=== PATIENT | female | born 1975 | race Caucasian/White ===

== ENCOUNTER 2018-10-17 12:23 | Inpatient (IN) ==
[2018-10-17] MEDS ORDERED: LORazepam 1 MG TAB PO STA (13:13)
[2018-10-17] MEDS ORDERED: SODIUM CHLORIDE 0.9% 1000ML 1,000 ML IV SCH (13:15)
[2018-10-17 13:30] LABS: Appearance Urine Cloudy (Clear); Bilirubin Urine Negative (Negative); Blood Urine 3+ (Negative); Color Urine Red; Glucose Urine UA Negative (Negative); Ketones Urine 2+ (Negative); Leukocyte Esterase Urine Negative (Negative); Nitrite Urine Negative (Negative); Protein Urine 2+ (Negative); Specific Gravity Urine 1.025 (1.000-1.030); Urobilinogen Urine Negative (Negative)
[2018-10-17 13:50] LABS: Bacteria Urine 1+ (Negative); RBC Urine >30 /hpf (0-4)
[2018-10-17 13:54] LABS: Amphetamines+Metham, Urine Pos (Neg); Barbiturates, Urine Neg (Neg); Benzodiazepine, Urine Neg (Neg); Cocaine, Urine Neg (Neg); MDMA (Ecstacy), Urine Pos (Neg); Methadone, Urine Neg (Neg); Opiate, Urine Neg (Neg); Phencyclidine, Urine Neg (Neg)
[2018-10-17 13:55] LABS: Basophils # (auto) 0.03 K/uL (0-0.2); Basophils % (auto) 0.3 %; Eosinophils # (auto) 0.03 K/uL (0-0.5); Eosinophils % (auto) 0.3 %; Immature Granulocytes # (auto) 0.03 K/uL (0.00-0.02); Immature Granulocytes % (auto) 0.3 %; Lymphocytes # (auto) 1.53 K/uL (1.2-3.4); Lymphocytes % (auto) 14.5 %; Mean Corpuscular Hemoglobin 26.1 pg (25-34); Mean Corpuscular Hgb Conc 34.2 g/dL (32-36); Mean Corpuscular Volume 76.2 fL (80-100); Mean Platelet Volume 8.7 fL (7.4-10.4); Monocytes # (auto) 0.78 K/uL (0.11-0.59); Monocytes % (auto) 7.4 %; Neutrophils # (auto) 8.13 K/uL (1.4-6.5); Neutrophils % (auto) 77.2 %; Platelet Count 371 K/uL (130-400); RDW Coefficient of Variation 16.3 % (11.5-14.5); RDW Standard Deviation 45.2 fL (36.4-46.3); Red Blood Count 4.99 M/uL (4.2-5.4); White Blood Count 10.53 K/uL (4.8-10.8)
[2018-10-17 14:16] LABS: Pregnancy Test, Serum Negative (Negative)
[2018-10-17 14:30] LABS: Albumin Level 3.9 gm/dl (3.4-5.0); BUN Creatinine Ratio 13.5 (10-20); Creatinine Clr Calc Pharmacy 87.9 ml/min; Est GFR (African American) 119.7; Est GFR (Non-African American) 103.3; Potassium 3.7 mmol/L (3.5-5.1)
[2018-10-17 14:35] LABS: Acetaminophen < 2 ug/ml (10-30); Salicylate 2.2 mg/dl (2.8-20)
[2018-10-17 14:41] LABS: Albumin Globulin Ratio 0.9 (0.9-2); Bilirubin,Total 0.4 mg/dl (0.2-1); Globulin 4.3 gm/dl (2.5-4.0); Thyroid Stimulating Hormone 0.865 uIu/ml (0.300-4.500); Total Protein 8.2 gm/dl (6.4-8.2)
--- NOTE | 2018-10-17 15:20 | Emergency Department Note ---
Entered by Anne Ruff acting as a scribe for History of Present Illness General Chief complaint: Overdose (Intentional) Stated complaint: TOOK METH - HEARING VOICES Time Seen by Provider: 10/17/18 12:33 Source: patient History of Present Illness Onset (ago): day(s) (last night) Location: head Pain Consistency: + other (episode) Quality: + other (mental health) Associated symptoms: + denies other symptoms (abdominal pain, congestion, diarrhea) and + other (anxious, SI, hearing voices); no cough and no fever/chills The patient is a 43 year old female who presents to the Emergency Room for a [facility] evaluation. The patient states that she has been using meth for over a year. She states that last night she did a lot of it and now is anxious. She states that it is to the point that she is having thoughts of hurting herself with a plan to overdose. She reports that she has tried hurting herself in the same manner 20 some years ago and was admitted for it. The patient states that she is now hearing voices that are telling her to hurt herself and tell her that she is dying. She notes that the voices have also told her that her kids arent safe. She notes that she has also been drinking a lot of alcohol, but is unsure when she last drank and if she withdrawals. The patient notes that she is unsure if the voices are gone when she is sober as she hasnt been sober for so long. The patient denies abdominal pain, fever, chills, cough, congestion, and diarrhea. 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 and A total of 10 systems reviewed and were otherwise negative Physical Exam Vital Signs Vital Signs - 24 hr 10/17/18 12:26 10/17/18 13:25 10/17/18 13:38 Temperature 37.4 C Temperature Source Oral Sepsis Recent Fever Within 48 Hours No Sepsis Action Taken by Nursing No Action Required Pulse Rate 114 H 93 H Pulse Rate from SpO2 Sensor 91 H Respiratory Rate 20 17 Respiratory Effort / Characteristics Non-Labored Spontaneous Respiratory Depth Normal Respiratory Pattern Regular Blood Pressure 122/77 135/87 Blood Pressure Mean 92 103 Pulse Oximetry 99 99 100 Oxygen Delivery Method Room Air Room Air 10/17/18 13:47 10/17/18 14:00 10/17/18 14:30 Temperature Temperature Source Sepsis Recent Fever Within 48 Hours Sepsis Action Taken by Nursing Pulse Rate 100 H 96 H 97 H Pulse Rate from SpO2 Sensor 100 H 98 H 98 H Respiratory Rate 23 20 17 Respiratory Effort / Characteristics Respiratory Depth Respiratory Pattern Blood Pressure 139/87 134/86 Blood Pressure Mean 104 102 Pulse Oximetry 98 99 99 Oxygen Delivery Method 10/17/18 14:40 10/17/18 14:50 10/17/18 15:00 Temperature Temperature Source Sepsis Recent Fever Within 48 Hours Sepsis Action Taken by Nursing Pulse Rate 92 H 96 H 89 Pulse Rate from SpO2 Sensor 91 H 97 H 91 H Respiratory Rate 23 20 21 Respiratory Effort / Characteristics Respiratory Depth Respiratory Pattern Blood Pressure 117/82 Blood Pressure Mean 93 Pulse Oximetry 100 98 100 Oxygen Delivery Method Room Air Room Air Room Air 10/17/18 15:10 10/17/18 15:20 10/17/18 15:30 Temperature Temperature Source Sepsis Recent Fever Within 48 Hours Sepsis Action Taken by Nursing Pulse Rate 93 H 128 H 85 Pulse Rate from SpO2 Sensor 94 H 124 H 87 Respiratory Rate 23 19 20 Respiratory Effort / Characteristics Respiratory Depth Respiratory Pattern Blood Pressure 129/86 Blood Pressure Mean 100 Pulse Oximetry 98 100 99 Oxygen Delivery Method Room Air Room Air Room Air 10/17/18 15:31 10/17/18 15:40 10/17/18 15:50 Temperature Temperature Source Sepsis Recent Fever Within 48 Hours Sepsis Action Taken by Nursing Pulse Rate 91 H 101 H 101 H Pulse Rate from SpO2 Sensor 90 100 H 99 H Respiratory Rate 22 20 19 Respiratory Effort / Characteristics Respiratory Depth Respiratory Pattern Blood Pressure Blood Pressure Mean Pulse Oximetry 99 98 98 Oxygen Delivery Method Room Air Room Air Room Air 10/17/18 16:00 10/17/18 16:10 10/17/18 16:20 Temperature Temperature Source Sepsis Recent Fever Within 48 Hours Sepsis Action Taken by Nursing Pulse Rate 101 H 109 H 106 H Pulse Rate from SpO2 Sensor 99 H 107 H 108 H Respiratory Rate 22 20 20 Respiratory Effort / Characteristics Respiratory Depth Respiratory Pattern Blood Pressure 122/82 Blood Pressure Mean 95 Pulse Oximetry 99 97 99 Oxygen Delivery Method Room Air Room Air Room Air 10/17/18 16:30 10/17/18 16:31 10/17/18 16:40 Temperature Temperature Source Sepsis Recent Fever Within 48 Hours Sepsis Action Taken by Nursing Pulse Rate 104 H 103 H 102 H Pulse Rate from SpO2 Sensor 107 H 102 H 102 H Respiratory Rate 18 21 18 Respiratory Effort / Characteristics Respiratory Depth Respiratory Pattern Blood Pressure 144/111 H Blood Pressure Mean 122 Pulse Oximetry 97 97 98 Oxygen Delivery Method Room Air Room Air Room Air GENERAL: Awake, alert, anxious appearing, in no distress HENT: Normocephalic, atraumatic. Oropharynx with dry mucous membranes and otherwise unremarkable. EYES: Normal conjunctiva. Sclera non-icteric. EOMI. No nystamgus. PEARRL. NECK: Supple. No nuchal rigidity. FROM. No JVD. RESPIRATORY: Clear to auscultation bilaterally. CARDIAC: Regular rate, normal rhythm. Extremities warm and well perfused. Pulses equal. ABDOMEN: Soft, non-distended. No tenderness to palpation. No rebound or guarding. No masses. RECTAL: Deferred. MUSCULOSKELETAL: Chest examination reveals no tenderness. The back is symmetrica l on inspection without obvious abnormality. There is no CVA tenderness to palpation. No joint edema. LOWER EXTREMITIES: Calves are equal size bilaterally and non-tender. No edema. No discoloration. NEURO: Normal sensorium. No sensory or motor deficits noted. Normal reflexes. No clonus. SKIN: No rash or jaundice noted. PSYCH: Positive depression and SI with plan. Positive command hallucinations. Course 1305: Past medical records reviewed. The patient was evaluated in room A5. A complete history and physical exam was performed. 1456: The patient was medically cleared. [address] [place] [address] is coming to evaluate her. 1716: The patient was accepted to [address] [place] [address] at this time. I signed the 201 at this time. Administered Medications Discontinued Medications Sodium Chloride (Nss 1000ml) 1,000 mls @ 999 mls/hr IV .[id number] HYUN Stop: 10/17/18 14:15 Last Infusion: 10/17/18 14:59 Dose: 0 mls/hr Documented by: [id number] Admin: 10/17/18 13:49 Dose: 999 mls/hr Documented by: [id number] Lorazepam (Ativan) 1 mg PO NOW STA Stop: 10/17/18 13:14 Last Admin: 10/17/18 13:49 Dose: 1 mg Documented by: [id number] Medical Decision Making Differential Diagnosis Differential diagnoses considered include mood disorder, infection, hypoglycemia, electrolyte abnormalities, cardiac sources, intracerebral event, toxicologic, neurologic, as well as others. Medical Records Attestation: I reviewed the patient's medical records. Home Medications Current Medication List: was personally reviewed by me Laboratory Data Attestation: I reviewed the patient's lab results. Result diagrams: 10/17/18 13:37 10/17/18 13:37 Lab Results 10/17/18 10/17/18 10/17/18 Range/Units 12:45 12:45 13:37 WBC 10.53 (4.8-10.8) K/uL RBC 4.99 (4.2-5.4) M/uL Hgb 13.0 (12.0-16.0) g/dL Hct 38.0 (37-47) % MCV 76.2 L (80-100) fL MCH 26.1 (25-34) pg MCHC 34.2 (32-36) g/dL RDW Std Deviation 45.2 (36.4-46.3) fL RDW Coeff of Jennifer 16.3 H (11.5-14.5) % Plt Count 371 (130-400) K/uL MPV 8.7 (7.4-10.4) fL Immature Gran % (Auto) 0.3 % Neut % (Auto) 77.2 % Lymph % (Auto) 14.5 % [place] % (Auto) 7.4 % Eos % (Auto) 0.3 % Baso % (Auto) 0.3 % Immature Gran # (Auto) 0.03 H (0.00-0.02) K/uL Neut # (Auto) 8.13 H (1.4-6.5) K/uL Lymph # (Auto) 1.53 (1.2-3.4) K/uL [place] # (Auto) 0.78 H (0.11-0.59) K/uL Eos # (Auto) 0.03 (0-0.5) K/uL Baso # (Auto) 0.03 (0-0.2) K/uL Sodium (136-145) mmol/L Potassium (3.5-5.1) mmol/L Chloride (98-107) mmol/L Carbon Dioxide (21-32) mmol/L Anion Gap (3-11) BUN (7-18) mg/dl Creatinine (0.6-1.2) mg/dl Est Cr Clr Drug Dosing ml/min Est GFR ( Amer) Est GFR (Non-Af Amer) BUN/Creatinine Ratio (10-20) Glucose (70-99) mg/dl Calcium (8.5-10.1) mg/dl Total Bilirubin (0.2-1) mg/dl AST (15-37) U/L ALT (12-78) U/L Alkaline Phosphatase (45-117) U/L Total Protein (6.4-8.2) gm/dl Albumin (3.4-5.0) gm/dl Globulin (2.5-4.0) gm/dl Albumin/Globulin Ratio (0.9-2) TSH (0.300-4.500) uIu/ml HCG, Qual (Negative) Urine Color Red Urine Appearance Cloudy A (Clear) Urine pH 6.0 (4.5-7.5) Ur Specific [place] 1.025 (1.000-1.030) Urine Protein 2+ H (Negative) Urine Glucose (UA) Negative (Negative) Urine Ketones 2+ H (Negative) Urine Blood 3+ H (Negative) Urine Nitrite Negative (Negative) Urine Bilirubin Negative (Negative) Urine Urobilinogen Negative (Negative) Ur Leukocyte Esterase Negative (Negative) Urine RBC >30 H (0-4) /hpf Urine WBC 10-30 H (0-5) /hpf Ur Epithelial Cells 10-20 H (0-5) /lpf Urine Bacteria 1+ H (Negative) Salicylates (2.8-20) mg/dl Urine Opiates Screen Neg (Neg) Ur Methadone, Qual Neg (Neg) Acetaminophen (10-30) ug/ml Urine Barbiturates Neg (Neg) Ur Phencyclidine (PCP) Neg (Neg) U Amphetamin/Meth Scrn Pos H (Neg) MDMA (Ecstasy) Screen Pos H (Neg) U Benzodiazepines Scrn Neg (Neg) Ur Cocaine Metabolite Neg (Neg) U Marijuana (THC) Screen Neg (Neg) Ethyl Alcohol mg/dL (0-3) mg/dl 10/17/18 10/17/18 10/17/18 Range/Units 13:37 13:37 13:37 WBC (4.8-10.8) K/uL RBC (4.2-5.4) M/uL Hgb (12.0-16.0) g/dL Hct (37-47) % MCV (80-100) fL MCH (25-34) pg MCHC (32-36) g/dL RDW Std Deviation (36.4-46.3) fL RDW Coeff of Jennifer (11.5-14.5) % Plt Count (130-400) K/uL MPV (7.4-10.4) fL Immature Gran % (Auto) % Neut % (Auto) % Lymph % (Auto) % [place] % (Auto) % Eos % (Auto) % Baso % (Auto) % Immature Gran # (Auto) (0.00-0.02) K/uL Neut # (Auto) (1.4-6.5) K/uL Lymph # (Auto) (1.2-3.4) K/uL [place] # (Auto) (0.11-0.59) K/uL Eos # (Auto) (0-0.5) K/uL Baso # (Auto) (0-0.2) K/uL Sodium 137 (136-145) mmol/L Potassium 3.7 (3.5-5.1) mmol/L Chloride 107 (98-107) mmol/L Carbon Dioxide 22 (21-32) mmol/L Anion Gap 8.0 (3-11) BUN 10 (7-18) mg/dl Creatinine 0.72 (0.6-1.2) mg/dl Est Cr Clr Drug Dosing 87.9 ml/min Est GFR ( Amer) 119.7 Est GFR (Non-Af Amer) 103.3 BUN/Creatinine Ratio 13.5 (10-20) Glucose 91 (70-99) mg/dl Calcium 9.0 (8.5-10.1) mg/dl Total Bilirubin 0.4 (0.2-1) mg/dl AST 20 (15-37) U/L ALT 44 (12-78) U/L Alkaline Phosphatase 67 (45-117) U/L Total Protein 8.2 (6.4-8.2) gm/dl Albumin 3.9 (3.4-5.0) gm/dl Globulin 4.3 H (2.5-4.0) gm/dl Albumin/Globulin Ratio 0.9 (0.9-2) TSH 0.865 (0.300-4.500) uIu/ml HCG, Qual (Negative) Urine Color Urine Appearance (Clear) Urine pH (4.5-7.5) Ur Specific [place] (1.000-1.030) Urine Protein (Negative) Urine Glucose (UA) (Negative) Urine Ketones (Negative) Urine Blood (Negative) Urine Nitrite (Negative) Urine Bilirubin (Negative) Urine Urobilinogen (Negative) Ur Leukocyte Esterase (Negative) Urine RBC (0-4) /hpf Urine WBC (0-5) /hpf Ur Epithelial Cells (0-5) /lpf Urine Bacteria (Negative) Salicylates 2.2 L (2.8-20) mg/dl Urine Opiates Screen (Neg) Ur Methadone, Qual (Neg) Acetaminophen < 2 L (10-30) ug/ml Urine Barbiturates (Neg) Ur Phencyclidine (PCP) (Neg) U Amphetamin/Meth Scrn (Neg) MDMA (Ecstasy) Screen (Neg) U Benzodiazepines Scrn (Neg) Ur Cocaine Metabolite (Neg) U Marijuana (THC) Screen (Neg) Ethyl Alcohol mg/dL < 3.0 (0-3) mg/dl 10/17/18 Range/Units 13:37 WBC (4.8-10.8) K/uL RBC (4.2-5.4) M/uL Hgb (12.0-16.0) g/dL Hct (37-47) % MCV (80-100) fL MCH (25-34) pg MCHC (32-36) g/dL RDW Std Deviation (36.4-46.3) fL RDW Coeff of Jennifer (11.5-14.5) % Plt Count (130-400) K/uL MPV (7.4-10.4) fL Immature Gran % (Auto) % Neut % (Auto) % Lymph % (Auto) % [place] % (Auto) % Eos % (Auto) % Baso % (Auto) % Immature Gran # (Auto) (0.00-0.02) K/uL Neut # (Auto) (1.4-6.5) K/uL Lymph # (Auto) (1.2-3.4) K/uL [place] # (Auto) (0.11-0.59) K/uL Eos # (Auto) (0-0.5) K/uL Baso # (Auto) (0-0.2) K/uL Sodium (136-145) mmol/L Potassium (3.5-5.1) mmol/L Chloride (98-107) mmol/L Carbon Dioxide (21-32) mmol/L Anion Gap (3-11) BUN (7-18) mg/dl Creatinine (0.6-1.2) mg/dl Est Cr Clr Drug Dosing ml/min Est GFR ( Amer) Est GFR (Non-Af Amer) BUN/Creatinine Ratio (10-20) Glucose (70-99) mg/dl Calcium (8.5-10.1) mg/dl Total Bilirubin (0.2-1) mg/dl AST (15-37) U/L ALT (12-78) U/L Alkaline Phosphatase (45-117) U/L Total Protein (6.4-8.2) gm/dl Albumin (3.4-5.0) gm/dl Globulin (2.5-4.0) gm/dl Albumin/Globulin Ratio (0.9-2) TSH (0.300-4.500) uIu/ml HCG, Qual Negative (Negative) Urine Color Urine Appearance (Clear) Urine pH (4.5-7.5) Ur Specific [place] (1.000-1.030) Urine Protein (Negative) Urine Glucose (UA) (Negative) Urine Ketones (Negative) Urine Blood (Negative) Urine Nitrite (Negative) Urine Bilirubin (Negative) Urine Urobilinogen (Negative) Ur Leukocyte Esterase (Negative) Urine RBC (0-4) /hpf Urine WBC (0-5) /hpf Ur Epithelial Cells (0-5) /lpf Urine Bacteria (Negative) Salicylates (2.8-20) mg/dl Urine Opiates Screen (Neg) Ur Methadone, Qual (Neg) Acetaminophen (10-30) ug/ml Urine Barbiturates (Neg) Ur Phencyclidine (PCP) (Neg) U Amphetamin/Meth Scrn (Neg) MDMA (Ecstasy) Screen (Neg) U Benzodiazepines Scrn (Neg) Ur Cocaine Metabolite (Neg) U Marijuana (THC) Screen (Neg) Ethyl Alcohol mg/dL (0-3) mg/dl ECG Data Attestation: I personally reviewed and interpreted this ECG as follows: Indication: toxicologic Rate (beats per minute): 94 Rhythm: normal sinus Findings: + other (normal axis, normal intervals) and + RBBB (incomplete); no ST depression, no ST elevation and no acute ischemic change Blood Pressure Blood Pressure Findings: Elevated blood pressure Blood Pressure Disposition: elevated BP felt to be situational MDM Narrative Patient is a pleasant 43-year-old woman with a past medical history of depression with prior suicide attempts in the past by overdose who presents emergency department with fall SI with plan for overdose in the setting of command hallucinations in the setting of long-standing drug abuse with regular use of meth with last use last night per hpi. On arrival patient is in no acute distress, afebrile stable vital signs. She does appear mildly anxious and melancholy and affect. She does report thoughts of killing himself by overdose and voices telling her to hurt herself. EKG unremarkable without evidence of acute ischemia. WBC, H/H, platelets wnl. Chemistry without acidosis. LFTs and electrolytes unremarkable. UA with epithelial cells 10-20 and patient denied any urinary symptoms therefore will defer treatment at this time, pending repeat UA. Patient was medically cleared. Given the patient's active SI with plan and prior suicide attempt patient certainly would be considered high risk. The patient is willing to be admitted voluntarily as she wanted to get better. The patient was evaluated by 3 S and accepted for voluntary admission. 201 signed. Impression & Plan Suicidal ideation, Depression, Drug abuse Discharge Plan Visit Data *Final* Discharge Date/Time: 10/17/18 17:44 Chief Complaint: Overdose (Intentional) Stated Complaint: TOOK METH - HEARING VOICES ED Provider: Kal Aguirre Discharge Problem: Suicidal ideation, Depression, Drug abuse Patient Disposition: Admitted As Inpatient Discharge Instructions Interventions: ED Discharge Assessment Last Done: 10/17/18 17:44 Discharge Problem: Depression Qualifiers: Depression Type: unspecified Qualified Code(s): F32.9 - Major depressive disorder, single episode, unspecified The scribe's documentation has been prepared under my direction and personally reviewed by me in its entirety. I confirm that the note above accurately reflects all work, treatment, procedures, and medical decision making performed by me.
[2018-10-17 16:43] VITALS: O2SAT 98
[2018-10-17] MEDS ORDERED: MAGNESIUM HYDROXIDE SUSP 30 ML UDC PO PRN (16:57)
[2018-10-17] MEDS ORDERED: ACETAMINOPHEN 325 MG TAB PO PRN (16:57)
[2018-10-17] MEDS ORDERED: BISMUTH SUBSALICYLATE PER ML OMNICELL CHARGE PO PRN (16:57)
[2018-10-17] MEDS ORDERED: ALUMINUM/MAGNESIUM SUSP 30 ML UDC PO PRN (16:57)
[2018-10-17] MEDS ORDERED: SODIUM CHLORIDE 0.65% NA SOLN 45 ML (OCEAN) PRN (16:57)
[2018-10-18] MEDS: NICOTINE 21 MG/24 HR TDSY TD SCH (07:40)
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
[2018-10-18] MEDS: SERTRALINE HCL 50 MG TABLET PO SCH (11:10)
[2018-10-18] MEDS: lamoTRIgine 25 MG TAB PO SCH ×2 (11:11→21:23)
[2018-10-18] MEDS: NICOTINE POLACRILEX 2 MG GUM MT PRN ×2 (12:57→17:50)
[2018-10-19 06:45] VITALS: TEMP 97.7
[2018-10-19] MEDS: lamoTRIgine 25 MG TAB PO SCH (08:57)
[2018-10-19] MEDS: NICOTINE 21 MG/24 HR TDSY TD SCH (08:57)
[2018-10-19] MEDS: SERTRALINE HCL 50 MG TABLET PO SCH (08:57)
[2018-10-19 09:18] VITALS: BP 115/73; PULSE 83
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
[2018-10-19 21:44] LABS: Amphetamine Urine, Confirm 6320 NG/ML (CUTOFF=250); Methamphetamine, Ur Confirm >25000 NG/ML (CUTOFF=250)
== END 2018-10-19 12:01 | disposition home or self-care (01) | DRG 880 ==
LOC: ED 12:23 → 3S 16:57